=== PATIENT | female | born 1940 | race Caucasian/White ===

== ENCOUNTER → 2016-09-08 | Outpatient (CLI) | payer MEDICARE ==
[2016-09-08] VITALS (10 sets, daily range): BP systolic 148–185; BP diastolic 57–105; PULSE 68–79
[~2016-09-08] VITALS: Ht 157.5 cm; Wt 41.8 kg
[~2016-09-08] MED LIST: NORVASC2.5 MG PO
[2016-09-08 09:50] LABS: INR 1.1 (0.8-3.0); PROTHROMBIN TIME 12.1 SECONDS (9.7-12.8)
== END ==
LOC: COL.RAD 08:38
PROVIDERS: Physician Assistant
DX: K75.81 Nonalcoholic steatohepatitis (NASH) (principal); K63.5 Polyp of colon; Z79.01 Long term (current) use of anticoagulants
CPT/HCPCS: 26396